=== PATIENT | female | born 1970 | race Caucasian/White ===

== ENCOUNTER 2018-07-09 21:09 | Emergency (ER) | payer BC ==
[~2018-07-09] VITALS: Ht 167.6 cm; Wt 51.3 kg
--- NOTE | 2018-07-09 21:24 | NUR ---
ED Nurse Note: Walkin patient with complaints of right ankle injury related to soccer play.
[2018-07-09] MEDS ORDERED: HYDROcodone/Acetamin 5/325 tab ORAL ONE (21:30)
[2018-07-09] MEDS ORDERED: Ketorolac 60mg Inj IM ONE (21:30)
--- NOTE | 2018-07-09 22:00 | NUR ---
ED Nurse Note: Patient tolerated pain medication well and reports that pain has decreased by half the intensity at this time. Patient's is at bedside.
--- NOTE | 2018-07-09 22:30 | NUR ---
ED Nurse Note: Patient receiving splint and crutch instructions.
[2018-07-09] MEDS ORDERED: NORCO 5-325 TA1 EACH ORAL (22:31)
[2018-07-09] MEDS ORDERED: IBUPROFEN600 MG ORAL (22:31)
[2018-07-09 22:52] VITALS: BP 143/84
--- NOTE | 2018-07-09 22:52 | NUR ---
ED Nurse Note: Patient cleared for discharge by [facility]. Patient helped with wheelchair to car, verbalized understanding of discharge instructions as well as crutch use instructions. Patient was A&Ox4, no s/s of acute distress. Patient departed with all personal belongings.
--- NOTE | 2018-07-09 23:24 | Emergency Room Report ---
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 Pain localized to the ankle 8 out of 10 denies any knee pain Denies any pelvic pain Denies any lapse of consciousness there was increased swelling and pain with any touch Allergies: Coded Allergies: No Known Allergies (Unverified , 07/09/18) Patient History Past Medical History: see triage record Pertinent Family History: none Last Menstrual Period: 06/28/18 Now: No Reviewed Nursing Documentation: PMH: Agreed; PSxH: Agreed Nursing Documentation-PMH Past Medical History: No History, Except For Hx Hypertension: Yes Review of Systems All Other Systems: negative except mentioned in HPI Physical Exam Vital Signs Date Time Temp Pulse Resp B/P (MAP) Pulse Ox O2 Delivery O2 Flow Rate FiO2 07/09/18 21:21 98.2 87 14 143/84 97 Room Air Sp02 EP Interpretation: reviewed, normal General Appearance: well appearing, no apparent distress Head: normocephalic, atraumatic Eyes: bilateral eye PERRL, bilateral eye EOMI ENT: hearing grossly normal, normal pharynx Neck: supple Respiratory: lungs clear Cardiovascular #1: regular rate, rhythm Gastrointestinal: non tender, soft Musculoskeletal: swelling - Significant swelling and discomfort to palpation lateral ankle on the right side, good pulses intact dorsally, nontender proximally Neurologic: alert, oriented x3, responsive Skin: other - As above Lymphatic: no adenopathy Procedures Splinting Splinting : Consent: Emergent Location: Right leg Pre-Made Type: velcro Hand-Made Type: plaster Splint: sugar-tong Pre-Proc Neuro Vasc Exam: normal Post-Proc Neuro Vasc Exam: normal Patient Tolerated: Well Complications: None Medical Decision Making Diagnostic Impression: Primary Impression: fibular fracture Additional Impression: tibial fracture ER Course Imaging reveals acute fracture involving the distal fibular and tibial area On the lateral view the posterior tibia does appear to be involved Patient has splint applied she requires close orthopedic follow-up She remains neurovascularly intact Nonweightbearing Referral is provided for orthopedics Other X-Ray Diagnostic Results Other X-Ray Diagnostic Results : X-Ray ordered: Right ankle # of Views/Limited Vs Complete: 3 View Indication: Pain EP Interpretation: Yes Interpretation: other - Acute spiral distal fibular fracture, evidence of possible tibial involvement, also soft tissue swelling Impression: Other - Acute distal tibial fib fracture Electronically Signed by: Milena Salas DO Last Vital Signs Date Time Temp Pulse Resp B/P (MAP) Pulse Ox O2 Delivery O2 Flow Rate FiO2 07/09/18 22:52 98.2 14 143/84 97 Room Air 07/09/18 21:21 87 Status: improved Disposition: HOME, SELF-CARE Condition: Improved Scripts Hydrocodone Bit/Acetaminophen 5-325* (NORCO 5-325*) 1 Each Tablet 1 TAB ORAL Q6H PRN for For Pain, #8 TAB 0 Refills Prov: Milena Salas DO 07/09/18 Ibuprofen* (MOTRIN*) 600 Mg Tablet 600 MG ORAL Q8H PRN for For Pain, #20 TAB 0 Refills Prov: Milena Salas DO 07/09/18 Referrals: Henry Fairbanks MD Patient Instructions: Tibial and Fibular Fracture, Adult, Ankle Fracture, Easy- to-Read Additional Instructions: Patient is provided with the discharge instructions notified to follow up with primary doctor in the next 2-3 days otherwise return to the er with any worsening symptoms. Please note that this report is being documented using [employer] technology. This can lead to erroneous entry secondary to incorrect interpretation by the dictating instrument. Milena Salas DO Jul 09, 2018 23:24
--- NOTE | 2018-07-10 18:01 | Diagnostic Imaging Report ---
Indication: Pain, soccer injury Technique: 2 views of the left tibia and fibula Comparison: none Findings: There is a nondisplaced oblique fracture of the distal fibula. No tibial fracture demonstrated. No radiopaque foreign body Impression: Positive for distal fibular fracture
--- NOTE | 2018-07-10 18:02 | Diagnostic Imaging Report ---
Indication: Pain, soccer injury, trauma Technique: 3 views of the right ankle Comparison: none Findings: There is an oblique fracture of the distal fibula, probably comminuted, minimally displaced. There is overlying soft tissue swelling. No associated tibial or talar fracture demonstrated. Impression: Positive for distal fibular fracture
== END 2018-07-09 22:52 | disposition home or self-care (01) ==
LOC: EMR 22:11
DX: S82.434A Nondisplaced oblique fracture of shaft of right fibula, initial encounter for closed fracture (principal); S82.201A Unspecified fracture of shaft of right tibia, initial encounter for closed fracture; X50.1XXA Overexertion from prolonged static or awkward postures, initial encounter; Y93.66 Activity, soccer; Y92.89 Other specified places as the place of occurrence of the external cause; I10 Essential (primary) hypertension
CPT/HCPCS: 29515; 96372; 99283